=== PATIENT | male | born 1935 | race Caucasian/White ===

== ENCOUNTER 2016-08-14 08:09 | Outpatient (CLI) | payer MEDICARE ==
[2016-08-14] VITALS (7 sets, daily range): BP systolic 110–134; BP diastolic 44–78; PULSE 52–62; TEMP 98.2
[~2016-08-14] VITALS: Ht 167.6 cm; Wt 70.6 kg
[~2016-08-14 08:09] MED LIST: ASPIRIN E.C. 8181 MG PO; COZAAR 50MG50 MG/TAB PO; CRESTOR40 MG PO; LOPRESSOR 225 MG/TAB PO; NO HOME MEDICATIONS; PLAVIX 75MG TAB75 MG PO; PRINIVIL2.5 MG PO; SYNTHROID0.05 MG/TA PO
[2016-08-15] MEDS ORDERED: MULTIPLE VITAMI1 CAP PO (14:48)
[2016-08-15] MEDS ORDERED: TYLENOL 500MG500 MG PO (21:04)
[2016-08-15] MEDS ORDERED: ROXICODONE 55 MG/TAB PO (21:04)
== END 2016-08-14 11:30 | disposition home or self-care (01) ==
LOC: COL.RAD 08:09
DX: M50.30 Other cervical disc degeneration, unspecified cervical region (principal); M47.892 Other spondylosis, cervical region; M48.02 Spinal stenosis, cervical region; I65.23 Occlusion and stenosis of bilateral carotid arteries
CPT/HCPCS: Q9967

== ENCOUNTER 2016-08-15 13:05 | Day surgery (SDC) | payer MEDICARE ==
[~2016-08-15] VITALS: Ht 167.6 cm; Wt 71.0 kg
[2016-08-15 14:39] VITALS: BP 108/81; PULSE 69; TEMP 97.8
[2016-08-15] MEDS ORDERED: MULTIPLE VITAMI1 CAP PO (14:48)
[2016-08-15 20:30] VITALS: BP 114/57; PULSE 71; TEMP 98.2
[2016-08-15 20:45] VITALS: BP 104/46; PULSE 54
[2016-08-15 21:00] VITALS: BP 103/81; PULSE 54; TEMP 98.2
[2016-08-15] MEDS ORDERED: TYLENOL 500MG500 MG PO (21:04)
[2016-08-15] MEDS ORDERED: ROXICODONE 55 MG/TAB PO (21:04)
[2016-08-15 21:15] VITALS: BP 118/67; PULSE 54
== END 2016-08-15 22:45 | disposition home or self-care (01) ==
LOC: SDCO 13:05 → SURG 20:30 → SDCO 22:45
DX: K40.91 Unilateral inguinal hernia, without obstruction or gangrene, recurrent (principal); I10 Essential (primary) hypertension; E03.9 Hypothyroidism, unspecified; Z95.5 Presence of coronary angioplasty implant and graft; I25.811 Atherosclerosis of native coronary artery of transplanted heart without angina pectoris; M48.02 Spinal stenosis, cervical region; G62.9 Polyneuropathy, unspecified; G72.9 Myopathy, unspecified; M79.1 Myalgia; M25.50 Pain in unspecified joint
CPT/HCPCS: OP; A4315; C1781; J0330; J0690; J1100; J1885; J2175; J2370; J2405; J2704; J2710; J3010; J7120

== ENCOUNTER → 2017-06-08 | Outpatient (CLI) | payer MEDICARE ==
[~2017-06-08] MED LIST changes: +MULTIPLE VITAMI1 CAP PO; +ROXICODONE 55 MG/TAB PO; +TYLENOL 500MG500 MG PO
== END ==
LOC: COL.VAS 09:31
DX: I34.0 Nonrheumatic mitral (valve) insufficiency (principal)

== ENCOUNTER 2017-06-28 08:03 | Day surgery (SDC) | payer MEDICARE ==
[2017-06-28] VITALS (12 sets, daily range): BP systolic 86–111; BP diastolic 43–79; PULSE 43–61; TEMP 98.3
[~2017-06-28] VITALS: Ht 170.2 cm; Wt 70.7 kg
[2017-06-28 08:36] LABS: INR 1.1 (0.8-3.0)
[2017-06-28 08:37] LABS: HEMATOCRIT 38.5 % (42.0-52.0); HEMOGLOBIN 12.9 g/dl (13.5-18.0); MEAN CELL VOLUME 94 fl (80.0-100.0); MEAN CORPUSCULAR HEMOGLOBIN 31 pg (27.0-31.0); MEAN CORPUSCULAR HGB CONC 34 g/dl (33.0-37.0); MEAN PLATELET VOLUME 9.2 fl (7.4-10.4); PLATELET COUNT 167 K/mm3 (130-400); RED BLOOD COUNT 4.11 M/mm3 (4.20-5.60); REDCELL DISTRIBUTION WIDTH-CV 13.4 % (11.5-14.5)
[2017-06-28 08:43] LABS: CALCIUM 9.7 mg/dL (8.4-10.2); CREATININE, serum 1.26 mg/dL (0.66-1.25); POTASSIUM 5.2 mmol/L (3.4-5.0)
[2017-06-28] MEDS ORDERED: ELIQUIS 5MG PO (09:15)
[2017-06-28] MEDS ORDERED: LASIX 40MG TABL40 MG PO (09:16)
[2017-06-28] MEDS ORDERED: NEURONTIN300 MG/CAP PO (09:16)
[2017-06-28] MEDS ORDERED: B-12 100 MCG PO (09:17)
[2017-06-28] MEDS ORDERED: VITAMIN D 400400 IU PO (09:17)
[2017-06-28] MEDS ORDERED: MULTAQ400 MG PO (11:07)
== END 2017-06-28 16:16 | disposition home or self-care (01) ==
LOC: COL.CAR 08:03
PROVIDERS: Internal Medicine Cardiovascular Disease
DX: I25.10 Atherosclerotic heart disease of native coronary artery without angina pectoris (principal); I08.3 Combined rheumatic disorders of mitral, aortic and tricuspid valves; I27.20 Pulmonary hypertension, unspecified; I25.2 Old myocardial infarction; N52.9 Male erectile dysfunction, unspecified; I48.0 Paroxysmal atrial fibrillation; M19.90 Unspecified osteoarthritis, unspecified site; F17.220 Nicotine dependence, chewing tobacco, uncomplicated; E78.2 Mixed hyperlipidemia; Z95.5 Presence of coronary angioplasty implant and graft; Z79.01 Long term (current) use of anticoagulants; Z79.82 Long term (current) use of aspirin; Z82.3 Family history of stroke
CPT/HCPCS: C1760; C1894; J2250; J3010; Q9967

== ENCOUNTER 2017-11-05 13:27 | Outpatient (RCR) | payer MEDICARE ==
[~2017-11-05 13:27] MED LIST changes: +B-12 100 MCG PO; +ELIQUIS 5MG PO; +LASIX 40MG TABL40 MG PO; +MULTAQ400 MG PO; +NEURONTIN300 MG/CAP PO; +VITAMIN D 400400 IU PO
== END 2017-12-05 06:09 | disposition home or self-care (01) ==
LOC: COL.CR 13:27
DX: Z48.812 Encounter for surgical aftercare following surgery on the circulatory system (principal); I09.1 Rheumatic diseases of endocardium, valve unspecified; I05.8 Other rheumatic mitral valve diseases; I48.2 Chronic atrial fibrillation; I50.9 Heart failure, unspecified; Z95.5 Presence of coronary angioplasty implant and graft; I25.2 Old myocardial infarction; E78.5 Hyperlipidemia, unspecified

== ENCOUNTER 2018-04-12 09:38 | Inpatient (IN) | payer MEDICARE ==
[~2018-04-12] VITALS: Ht 167.6 cm; Wt 64.9 kg
[2018-04-24 09:46] VITALS: BP 115/46; PULSE 54; TEMP 98
--- NOTE | 2018-04-24 10:00 | NUR ---
Pt arrived to floor at this time. [facility]
[2018-04-24 10:07] LABS: BASO % 0.7 % (0.0-2.0); EOS # 0.1 (0.0-0.7); EOS % 1.8 % (0-4.0); GRAN # 2.6 (1.4-6.5); GRAN % 59.1 % (42.2-75.2); LYMPH # 1.1 (1.2-3.4); LYMPH % 25.2 % (20.0-51.0); MEAN CELL VOLUME 98 fl (80.0-100.0); MEAN CORPUSCULAR HGB CONC 32 g/dl (33.0-37.0); MEAN PLATELET VOLUME 9.1 fl (7.4-10.4); MONO # 0.6 (0.1-0.6); PLATELET COUNT 156 K/mm3 (130-400); RED BLOOD COUNT 3.17 M/mm3 (4.20-5.60); REDCELL DISTRIBUTION WIDTH-CV 15.8 % (11.5-14.5)
[2018-04-24 10:17] LABS: INR 4.6 (0.8-3.0)
[2018-04-24 10:21] LABS: ALBUMIN 3.7 gm/dL (3.5-5.0); BILIRUBIN,TOTAL 0.9 mg/dL (0.0-1.0); CALCIUM 9.2 mg/dL (8.4-10.2); CREATININE, serum 1.77 mg/dL (0.66-1.25); MAGNESIUM 2.1 mg/dL (1.6-2.3); POTASSIUM 4.3 mmol/L (3.4-5.0); TOTAL PROTEIN 6.8 gm/dL (6.4-8.2)
[2018-04-24 10:36] LABS: PROTHROMBIN TIME 52.7 SECONDS (9.7-12.8)
[2018-04-24 10:40] LABS: HEMATOCRIT 31.1 % (42.0-52.0); HEMOGLOBIN 9.8 g/dl (13.5-18.0); MEAN CORPUSCULAR HEMOGLOBIN 31 pg (27.0-31.0)
[2018-04-24] MEDS ORDERED: COUMADIN 5MG5 MG/TAB PO (11:53)
[2018-04-24 11:56] VITALS: BP 111/53; PULSE 49; TEMP 97.4
--- NOTE | 2018-04-24 12:20 | NUR ---
First visit from the top carrier. Sample Grader prayed with patient and . No other needs right now.
--- NOTE | 2018-04-24 12:33 | NUR ---
Assessment completed. Called Cale's team regarding bradycardia, hypotension, and INR. They are aware and will address. INT to LF. Oriented to room. Denies needs, will continue to monitor.
[2018-04-24 16:00] VITALS: BP 92/49; PULSE 49; TEMP 98.5
--- NOTE | 2018-04-24 18:05 | NUR ---
Pt has done well today. Likes to walk around floor visiting with people, HR goes from upper 30's to 50's depending on activity. Ordered supper for himself, denies pain or other needs. Will give bedside shift report to nightshift brannon who will resume care.
[2018-04-24 19:29] VITALS: BP 98/69; PULSE 114; TEMP 97.8
--- NOTE | 2018-04-24 21:00 | NUR ---
Completed assessment and medication administration; PT tolerated all cares well; No acute reports of pain or discomfort; PT A&Ox4, ABD soft and round, BS active x4, normal and scaley skin; BLE have edema +1, irregular HR; PT denied further needs at time of exit; PT assisted to comfortable position in bed with call light in reach; Will continue to monitor. CDA
[2018-04-24 23:33] VITALS: BP 116/98; PULSE 116; TEMP 97.6
[2018-04-25] VITALS (7 sets, daily range): BP systolic 79–119; BP diastolic 45–58; PULSE 45–96; TEMP 97.4–98.1
--- NOTE | 2018-04-25 02:00 | NUR ---
Reported asymptomatic drop bradycardia with Sotalol PT above; PT recorded in the mid 30 HR for short time and back to the 60 range; Dr. Grant acknowledge notification with no changes at this time. CDA
[2018-04-25 06:32] LABS: CALCIUM 8.7 mg/dL (8.4-10.2); CREATININE, serum 1.82 mg/dL (0.66-1.25); MAGNESIUM 1.9 mg/dL (1.6-2.3); POTASSIUM 4.6 mmol/L (3.4-5.0)
[2018-04-25 06:33] LABS: BASO % 0.9 % (0.0-2.0); EOS # 0.1 (0.0-0.7); EOS % 2.1 % (0-4.0); GRAN % 46.7 % (42.2-75.2); LYMPH # 1.7 (1.2-3.4); LYMPH % 38.9 % (20.0-51.0); MEAN CELL VOLUME 98 fl (80.0-100.0); MEAN CORPUSCULAR HGB CONC 32 g/dl (33.0-37.0); MEAN PLATELET VOLUME 9.6 fl (7.4-10.4); MONO # 0.5 (0.1-0.6); MONO % 11.2 % (1.7-9.3); PLATELET COUNT 164 K/mm3 (130-400); RED BLOOD COUNT 3.06 M/mm3 (4.20-5.60); REDCELL DISTRIBUTION WIDTH-CV 15.7 % (11.5-14.5)
[2018-04-25 06:42] LABS: HEMOGLOBIN 9.5 g/dl (13.5-18.0); MEAN CORPUSCULAR HEMOGLOBIN 31 pg (27.0-31.0)
--- NOTE | 2018-04-25 06:52 | NUR ---
Report given to GEO Ewing. PT rested well during night with no acute complaints of pain or changes. CDA
--- NOTE | 2018-04-25 07:50 | NUR ---
Assessment complete.patient awake,a/ox3.denies pain or discomfort at this time.breathing even and unlabored.LSCTA.Edema 2+ noted to RLE and 1+ to LLE.patient is on lasix.QTc 416 this am.pt is Sinus Jose Luis on telemetry.no other needs voiced.call light in reach
[2018-04-25 08:47] LABS: INR 3.5 (0.8-3.0)
--- NOTE | 2018-04-25 14:59 | NUR ---
BRUCE met with the patient and patient's , Vania, to discuss discharge plan. The patient lives in [place] with his . He reports independence with ADLs and has canes. The patient's PCP is Dr. Jung Santoro and he receives his medications at [facility]. He reports no difficulties obtaining his meds. The patient does not have advanced directives in EMR, but he states that he does have them completed and that they are at home. The patient plans to return home with his upon dischrage. No additional needs at this time.
--- NOTE | 2018-04-25 18:08 | NUR ---
PT HAS HAD AN UNEVNFUL DAY.PT HAS GUEST VISITING AT THIS TIME.DENIES ANY NEEDS.VSS.AWARE OF CARDIOVRSION TOMORROW MORNING.WILL CONTINUE TO MONITOR.CALL LIGHT IN REACH
--- NOTE | 2018-04-25 22:32 | NUR ---
Completed assessment and medication administration; PT tolerated all cares and medications well; PT resting in bed with spouse in room resting on window seat; PT continues Sotalol therapy; Reeducated on NPO after midnight with verbal understanding for pending cardioversion and possible pacemaker placement; PT A&Ox4, BS active x4, LCTAB; No further complaints or concerns at time of exit; PT able to return to a comfort position in bed with call light in reach; Will continue to monitor. CDA
[2018-04-26] VITALS (9 sets, daily range): BP systolic 92–131; BP diastolic 39–79; PULSE 44–127; TEMP 97.6–98.4
--- NOTE | 2018-04-26 01:41 | NUR ---
PT resting well in bed at time of rounds; Intermittent bradycardia with periodic drops in HR to low 30s; Reported to Dr. Yao with N/O to hold AM dose of Sotalol; No acute symptom changes at time of physical assessment; TELE ICU nurse made multiple notifications of HR drop and was notified of physician awareness; notification calls will be made for HR at or below 30; PT able to return to a comfortable position at time of exit with call light within reach; Will continue to monitor. CDA
[2018-04-26 06:21] LABS: BASO # 0.1 (0.0-0.2); BASO % 1.1 % (0.0-2.0); EOS # 0.1 (0.0-0.7); EOS % 1.9 % (0-4.0); GRAN % 55.8 % (42.2-75.2); INR 2.2 (0.8-3.0); LYMPH # 1.6 (1.2-3.4); LYMPH % 29.1 % (20.0-51.0); MEAN CELL VOLUME 98 fl (80.0-100.0); MEAN CORPUSCULAR HGB CONC 32 g/dl (33.0-37.0); MEAN PLATELET VOLUME 9.6 fl (7.4-10.4); MONO # 0.6 (0.1-0.6); MONO % 11.9 % (1.7-9.3); PLATELET COUNT 168 K/mm3 (130-400); PROTHROMBIN TIME 25.2 SECONDS (9.7-12.8); RED BLOOD COUNT 3.18 M/mm3 (4.20-5.60); REDCELL DISTRIBUTION WIDTH-CV 15.6 % (11.5-14.5)
[2018-04-26 06:22] LABS: HEMATOCRIT 31.1 % (42.0-52.0); HEMOGLOBIN 9.8 g/dl (13.5-18.0); MEAN CORPUSCULAR HEMOGLOBIN 31 pg (27.0-31.0)
[2018-04-26 06:24] LABS: CALCIUM 9.1 mg/dL (8.4-10.2); CREATININE, serum 1.81 mg/dL (0.66-1.25); POTASSIUM 4.7 mmol/L (3.4-5.0)
--- NOTE | 2018-04-26 06:52 | NUR ---
Report given to GEO Dominguez; No significant changes not previously noted. CDA
--- NOTE | 2018-04-26 07:47 | NUR ---
Assessment complete. Pt is AXO X3, denies having any pain at this time. Breathing is even and unlabored on room air. Tele on. LF INT flushes easily, remains free of complications, and is CDI. Pt's is at the bedside; all questions answered. Pt is resting quietly in the bed at this time and he denies further needs. Call light within reach, will continue to monitor.
--- NOTE | 2018-04-26 08:00 | NUR ---
Pt left the floor at this time for procedure.
--- NOTE | 2018-04-26 08:59 | NUR ---
ALL SEDATION MEDICATIONS WILL BE GIVEN DURING PROCEDURE WITH VERBAL ORDER FROM MD CHANCE. CARDIOVERSION PERFORMED FIRST SUCCESSFULLY. PATIENT NOW ON TABLE BEING PREPPED FOR PACEMAKER INSERTTION. SEE MERGE FOR MEDICATION ADMIN TIMES. SEE MERGE FOR RASS AND MODERATE SEDATION ASSESSMENTS DURING AND POST PROCEDURE.
--- NOTE | 2018-04-26 20:31 | NUR ---
Pt has been resting on and off throughout the day. He has remained free of pain. L chest pacemaker site has remained CDI. Pt is resting quietly in the bed at this time and he denies further needs. Call light within reach. Report given to GEO Rosario.
--- NOTE | 2018-04-26 20:49 | NUR ---
PT'S O2 WAS 80% ON RA, PLACED OXYGEN AT 3L/NC AND O2 WENT UP TO 95%. PT WAS LAYING BENT AND LOW IN BED. PT GOT UP AND TOOK OFF O2 AND HE FEELS FINE WITHOUT IT. PT IS IN BED WITH HOB AT 30 DEGREE ANGLE. PT DENIES PAIN WHILE STILL BUT HAS PAIN WHEN HE MOVES IN HIS LEFT ARM. PT WAS GIVEN TYLENOL EARLIER. NO FURTHER NEEDS CALL LIGHT WITHIN REACH.
--- NOTE | 2018-04-27 03:35 | NUR ---
PT HAS BEEN UP SEVERAL TIMES SO FAR DURING THE NIGHT. PT ADVISES THAT HE CAN'T GET COMFORTABLE AND LEFT SHOULDER HURTS. OFFERED PAIN MEDICATION AND PT STATES THAT HE HAS NO PAIN. PT HAS BEEN COLD, PUT TWO WARM BLANKETS ON PT AND COVERED WITH OTHER BLANKETS. PT ADVISED THAT HE WAS COMFORTABLE. PT RESTING/SLEEPING AT THIS TIME. NO FURTHER NEEDS. CALL LIGHT WITHIN REACH.
[2018-04-27 03:38] VITALS: BP 104/58; PULSE 62; TEMP 98.6
--- NOTE | 2018-04-27 04:18 | NUR ---
PT'S O2 WENT DOWN TO 86% ON ROOM AIR. PLACED 2L/NC BACK ON PT AND ADVISED HIM TO LEAVE IT ON WHILE HE SLEEPS. PT ADVISES THAT HE DOES NOT HAVE SLEEP APNEA. ADVISED HIM HE MAY WANT TO CHECK INTO IT, BECAUSE HIS O2 DROPS DOWN WHEN HE IS SLEEPING. CALL LIGHT WITHIN REACH.
--- NOTE | 2018-04-27 05:53 | NUR ---
PT GOT UP TO USE THE BATHROOM AND THEN ASKED FOR SOME PAIN MEDICATION. ASSISTED BACK TO BED AND PAIN MEDICATION TYLENOL GIVEN. PT TRYING TO GO BACK TO SLEEP. CALL LIGHT WITHIN REACH.
[2018-04-27 06:56] VITALS: BP 99/46; PULSE 65; TEMP 98.2
[2018-04-27 06:59] LABS: BASO % 0.9 % (0.0-2.0); EOS # 0.1 (0.0-0.7); EOS % 1.3 % (0-4.0); GRAN # 2.6 (1.4-6.5); GRAN % 56.6 % (42.2-75.2); HEMATOCRIT 27.2 % (42.0-52.0); HEMOGLOBIN 8.8 g/dl (13.5-18.0); LYMPH # 1.1 (1.2-3.4); LYMPH % 24.8 % (20.0-51.0); MEAN CELL VOLUME 97 fl (80.0-100.0); MEAN CORPUSCULAR HEMOGLOBIN 31 pg (27.0-31.0); MEAN CORPUSCULAR HGB CONC 32 g/dl (33.0-37.0); MEAN PLATELET VOLUME 9.3 fl (7.4-10.4); MONO # 0.7 (0.1-0.6); PLATELET COUNT 144 K/mm3 (130-400); RED BLOOD COUNT 2.82 M/mm3 (4.20-5.60); REDCELL DISTRIBUTION WIDTH-CV 15.4 % (11.5-14.5)
[2018-04-27 07:03] LABS: PROTHROMBIN TIME 23.3 SECONDS (9.7-12.8)
[2018-04-27 07:11] LABS: CALCIUM 8.3 mg/dL (8.4-10.2); CREATININE, serum 1.5 mg/dL (0.66-1.25); MAGNESIUM 1.8 mg/dL (1.6-2.3); POTASSIUM 4.3 mmol/L (3.4-5.0)
--- NOTE | 2018-04-27 09:10 | NUR ---
Assessment complete. Pt is AXO X3, denies having any pain at this time. Breathing is even and unlabored. Tele on. LF INT flushes easily, remains free of complications, and is CDI. L chest pacemaker site is CDI and is free of complications. Pt has family members at the bedside; all questions answered. Pt is sitting up in the chair at this time and he denies further needs. Call light within reach, will continue to monitor.
[2018-04-27] MEDS ORDERED: BETAPACE 80MG80 MG PO (10:41)
[2018-04-27] MEDS ORDERED: NORCO 325 MG-51 TAB PO (10:42)
--- NOTE | 2018-04-27 11:58 | NUR ---
Pt discharged at this time. LF INT discontinued with the catheter tip intact. Education provided and all questions were answered. Pt and his both verblaize understanding. Pt escourted out via WC with tech. Mary Ellen
== END 2018-04-27 12:00 | disposition home or self-care (01) | DRG 243 ==
LOC: MEDICAL 16:20
PROVIDERS: Nurse Practitioner; ADMIT Internal Medicine Cardiovascular Disease
PROC: 0JH606Z Insertion of Pacemaker, Dual Chamber into Chest Subcutaneous Tissue and Fascia, Open Approach (ICD-10-PCS; principal; 2018-04-26)
PROC: 02H63JZ Insertion of Pacemaker Lead into Right Atrium, Percutaneous Approach (ICD-10-PCS; 2018-04-26)
PROC: 02HK3JZ Insertion of Pacemaker Lead into Right Ventricle, Percutaneous Approach (ICD-10-PCS; 2018-04-26)
PROC: 5A2204Z Restoration of Cardiac Rhythm, Single (ICD-10-PCS; 2018-04-26)
DX: I48.0 Paroxysmal atrial fibrillation (principal); I50.32 Chronic diastolic (congestive) heart failure; I34.0 Nonrheumatic mitral (valve) insufficiency; I49.5 Sick sinus syndrome; I11.0 Hypertensive heart disease with heart failure; E78.2 Mixed hyperlipidemia; I25.10 Atherosclerotic heart disease of native coronary artery without angina pectoris; Z95.5 Presence of coronary angioplasty implant and graft; Z87.891 Personal history of nicotine dependence
CPT/HCPCS: C1769; C1785; C1894; C1898; J2250; J3010; J3370; J7030; J7050

== ENCOUNTER 2018-11-24 02:27 | Observation (INO) | payer MEDICARE ==
[2018-11-24] VITALS (10 sets, daily range): BP systolic 78–120; BP diastolic 40–80; PULSE 60–88; TEMP 98.2–100.7
[~2018-11-24] VITALS: Ht 167.6 cm; Wt 68.4 kg
[~2018-11-24 02:27] MED LIST changes: +BETAPACE 80MG80 MG PO; +COUMADIN 5MG5 MG/TAB PO; +NORCO 325 MG-51 TAB PO
[2018-11-24 03:19] LABS: BASO % 0.5 % (0.0-2.0); EOS % 0.3 % (0-4.0); GRAN # 4.7 (1.4-6.5); GRAN % 79.2 % (42.2-75.2); HEMATOCRIT 28.7 % (42.0-52.0); HEMOGLOBIN 9.7 g/dl (13.5-18.0); LYMPH # 0.5 (1.2-3.4); LYMPH % 7.8 % (20.0-51.0); MEAN CELL VOLUME 95 fl (80.0-100.0); MEAN CORPUSCULAR HEMOGLOBIN 32 pg (27.0-31.0); MEAN CORPUSCULAR HGB CONC 34 g/dl (33.0-37.0); MEAN PLATELET VOLUME 9.3 fl (7.4-10.4); MONO # 0.7 (0.1-0.6); MONO % 11.7 % (1.7-9.3); PLATELET COUNT 113 K/mm3 (130-400); RED BLOOD COUNT 3.02 M/mm3 (4.20-5.60)
[2018-11-24 03:23] LABS: INR 1.9 (0.8-3.0); PROTHROMBIN TIME 22.3 SECONDS (9.7-12.8)
[2018-11-24 03:32] LABS: ALBUMIN 3.9 gm/dL (3.5-5.0); BILIRUBIN,TOTAL 1.9 mg/dL (0.0-1.0); C-REACTIVE PROTEIN 6.6 mg/dL (0.0-0.9); CALCIUM 8.8 mg/dL (8.4-10.2); CREATININE, serum 1.37 (0.66-1.25); POTASSIUM 4.5 mmol/L (3.4-5.0); TOTAL PROTEIN 7.4 gm/dL (6.4-8.2)
[2018-11-24 03:41] LABS: TROPONIN-I 0.062 ng/mL (0.000-0.035)
[2018-11-24] MEDS ORDERED: CRESTOR40 MG PO (05:25)
[2018-11-24] MEDS ORDERED: IMDUR 30MG30 MG/TAB PO (05:25)
--- NOTE | 2018-11-24 05:39 | NUR ---
PT ARRIVED TO UNIT FROM ED. PATIENT FELL AT HOME BETWEEN BED AND WALL AND COULD NOT GET UP. STATES HE HAS HAD PROGRESSIVE LOWER EXTREMITY WEAKNESS FOR THE PAST FEW DAYS. TOLD EMS THAT HE WAS HAVING CHEST PAIN BUT PATIENT DENIES ANY CHEST PAIN OR SOB NOW. PATIENT ALERT AND ORIENTED WITH VSS.DENIES PAIN. IV TO RIGHT AC. IS A X1 ASSIST TO BEDSIDE COMMODE. ALL QUESTIONS ASKED AND ANSWERED. CALL LIGHT WITHIN REACH, WILL CONTINUE TO MONITOR
--- NOTE | 2018-11-24 07:00 | NUR ---
Report recieved from Jaosn Reynolds. Pt in bed resting on side with eyes closed. Will continue to monitor.
[2018-11-24 07:33] LABS: COLLECTION METHOD CLEAN CATCH
[2018-11-24 07:43] LABS: CHOLESTEROL RISK RATIO 2.9; MAGNESIUM 1.8 mg/dL (1.6-2.3)
[2018-11-24 07:44] LABS: PH 6 (5-8); SQUAMOUS EPITHELIAL 0-2 /hpf; URINE APPEARANCE Clear; URINE BACTERIA Rare /hpf; URINE BILIRUBIN Negative (NEGATIVE); URINE BLOOD 3+ (NEGATIVE); URINE COLOR Yellow; URINE GLUCOSE Negative (NEGATIVE); URINE KETONE Trace (NEGATIVE); URINE LEUKOCYTE ESTERASE Negative (NEGATIVE); URINE NITRATE Negative (NEGATIVE); URINE PROTEIN(semi-quant) 1+ (NEGATIVE)
[2018-11-24 08:01] LABS: TROPONIN-I 6 HR POST INITIAL 0.064 ng/mL (0.000-0.034)
[2018-11-24 08:14] LABS: THYROID STIMULATING HORMONE 1.17 uIU/mL (0.465-4.680)
--- NOTE | 2018-11-24 09:00 | NUR ---
Assessment charted. Pt in bed resting, discussed and plan of care, waiting on Dr. Almaguer to come visit. at bedside discussing plan of care. INT to R AC. Denies pain. Feeling tired from being up all night in ER. HR irregular. Will continue to monitor.
--- NOTE | 2018-11-24 11:31 | NUR ---
Patient lives at home with his (Alexis Kaiser [phone]) in [place], [place] and plans to return home upon recovery. Patient and have two supportive children (daughter who is a [facility] Nurse and a son who is an Comfort Filler) who support needs as much as possible. 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. Patient's primary care physician is Jung Santoro and also receives care as needed from Hermilo Madsen. Patient's pharmacy is [facility] and he does have advance directives for healthcare completed but they are not on file in his medical chart at this time. No further needs and social service assistant will follow as needed.
--- NOTE | 2018-11-24 18:17 | NUR ---
Pt resting in bed with many visitors at bedside. Up to bathroom several times over shift and pt states it is "getting easier to get up". Resting in bed, discussed plan of care and NPO at midnight for stress test tomorrow, pt agreeable to plan and family aware. Denies needs, will give bedside shift report to nightshift who will resume care.
--- NOTE | 2018-11-24 20:25 | NUR ---
Shift assessment complete. Pt resting in bed, awake, a&o, cooperative c cares. Pt denies pain or any other c/o at this time. INT patent. Tele in place. Pt denies needs. Call light in reach, family at bedside. Will continue to monitor.
[2018-11-25] VITALS (8 sets, daily range): BP systolic 96–106; BP diastolic 42–61; PULSE 64–66; TEMP 98.4–99
[2018-11-25 06:31] LABS: BASO % 0.4 % (0.0-2.0); EOS # 0.2 (0.0-0.7); EOS % 3.1 % (0-4.0); GRAN # 3.9 (1.4-6.5); GRAN % 72.4 % (42.2-75.2); LYMPH # 0.8 (1.2-3.4); LYMPH % 13.8 % (20.0-51.0); MEAN CELL VOLUME 95 fl (80.0-100.0); MEAN CORPUSCULAR HGB CONC 33 g/dl (33.0-37.0); MEAN PLATELET VOLUME 9.9 fl (7.4-10.4); MONO # 0.5 (0.1-0.6); MONO % 9.9 % (1.7-9.3); PLATELET COUNT 113 K/mm3 (130-400); RED BLOOD COUNT 2.68 M/mm3 (4.20-5.60); REDCELL DISTRIBUTION WIDTH-CV 14.3 % (11.5-14.5)
[2018-11-25 06:47] LABS: HEMATOCRIT 25.5 % (42.0-52.0); HEMOGLOBIN 8.5 g/dl (13.5-18.0); MEAN CORPUSCULAR HEMOGLOBIN 32 pg (27.0-31.0)
[2018-11-25 06:50] LABS: ALBUMIN 3.3 gm/dL (3.5-5.0); BILIRUBIN,TOTAL 1.5 mg/dL (0.0-1.0); CALCIUM 8.5 mg/dL (8.4-10.2); CREATININE, serum 1.49 (0.66-1.25); MAGNESIUM 1.9 mg/dL (1.6-2.3); PHOSPHOROUS 2.5 mg/dL (2.5-4.5); POTASSIUM 4.4 mmol/L (3.4-5.0); TOTAL PROTEIN 6.4 gm/dL (6.4-8.2)
[2018-11-25 07:01] LABS: TROPONIN-I 0.02 ng/mL (0.000-0.035)
--- NOTE | 2018-11-25 08:00 | NUR ---
PATIENT IS A&O. VSS. DENIES ANY SOA, CHEST PAIN OR ANY PAIN. PATIENT REPORTS HE FEELS WELL THIS AM. PRESS OPERATOR CARBON BLOCKS REPORTED PATIENT WAS INCONTINENT OF BM X2 LAST NOC. PATIENT REFUSED AM STOOL SOFTERN. BETAPACE HELD FROM SCHEDULED AJAY SCAN. PATIENT NPO. CONSENT ON CHART. OTHER AM MEDS GIVEN. HEAD TO TOE ASSESSMENT COMPLETE. NOTED IRREGULAR HEART WITH MURUR. TELE INPLACE WITH HR IN THE 60'S PACED. NO C/O N/C. RIGHT AC IV TO INT. AT BEDSIDE. NO OTHER NEEDS. CALL LIGHT IN REACH.
--- NOTE | 2018-11-25 10:16 | NUR ---
Initial visit; Patient thanked Clinical Education Manager for looking in on him and offering prayer and God's blessings for both him and his .
--- NOTE | 2018-11-25 17:15 | NUR ---
PATIENT DISCHARGING HOME VIA WHEELCHAIR TO PERSONAL VEHICLE WITH FAMILY. GAVE DISCHARGE INSTRUCTIONS AND F/U CARDIOLOGY APT. PATIENT WILL NEED TO CALL AND MAKE PCP APT DUE TO OFFICE CLOSED. ANSWERED ALL QUESTIONS/CONCERNS. DC'D IV SITE AND COVERED WITH BANDAID AND COBAN. TELE OFF. PATIENT DISCHARGED.
== END 2018-11-25 17:15 | disposition home or self-care (01) ==
LOC: COL.ER 02:27 → MEDICAL 04:11
PROVIDERS: Emergency Medicine; Family Medicine; Nurse Practitioner Family; ADMIT Student in an Organized Health Care Education/Training Program
DX: R53.1 Weakness (principal); I48.0 Paroxysmal atrial fibrillation; I49.5 Sick sinus syndrome; I34.0 Nonrheumatic mitral (valve) insufficiency; I27.20 Pulmonary hypertension, unspecified; I25.10 Atherosclerotic heart disease of native coronary artery without angina pectoris; N18.9 Chronic kidney disease, unspecified; I12.9 Hypertensive chronic kidney disease with stage 1 through stage 4 chronic kidney disease, or unspecified chronic kidney disease; E03.9 Hypothyroidism, unspecified; D64.9 Anemia, unspecified; D69.6 Thrombocytopenia, unspecified; Z95.0 Presence of cardiac pacemaker; Z79.01 Long term (current) use of anticoagulants; Z79.899 Other long term (current) drug therapy; Z82.3 Family history of stroke; Z79.891 Long term (current) use of opiate analgesic; Z88.0 Allergy status to penicillin
CPT/HCPCS: 99222-AI; 99239; A9500; J2785; J7030

== ENCOUNTER 2019-01-17 09:02 | Day surgery (SDC) | payer MEDICARE ==
[~2019-01-17] VITALS: Ht 167.6 cm; Wt 72.0 kg
[~2019-01-17 09:02] MED LIST changes: +IMDUR 30MG30 MG/TAB PO
[2019-01-17 09:50] VITALS: BP 121/79; PULSE 96; TEMP 97.9
[2019-01-17] MEDS ORDERED: COUMADIN 22.5 MG/TAB PO (10:03)
[2019-01-17 11:45] VITALS: BP 100/63; PULSE 79; TEMP 97.5
--- NOTE | 2019-01-17 11:45 | NUR ---
Pt to GI bay 8 via cart from [facility]. Pt drowsy, but awake. Denies pain or nausea. in room. Pt ambulates to recliner with stand by assistance. Warm blanket provided. Muffin, pudding, juice and water provided per pt request. Will continue to monitor. Call light within reach.
[2019-01-17 12:00] VITALS: BP 104/62; PULSE 76
--- NOTE | 2019-01-17 12:00 | NUR ---
Pt tolerating food and fluids without difficulties. Will continue to monitor. Call light within reach.
[2019-01-17 12:15] VITALS: BP 105/62; PULSE 77
--- NOTE | 2019-01-17 12:15 | NUR ---
Pt continues to rest. Denies needs. Call light within reach.
--- NOTE | 2019-01-17 12:30 | NUR ---
Discharge instructions reviewed. Pt and voice understanding. IV site discontinued with all parts intact. Pt up to dress. Call light within reach.
--- NOTE | 2019-01-17 12:55 | NUR ---
Pt escorted to private car via wheel chair. Pt accompanied home by his .
== END 2019-01-17 12:55 | disposition home or self-care (01) ==
LOC: SDCO 09:02
DX: D12.5 Benign neoplasm of sigmoid colon (principal); K57.30 Diverticulosis of large intestine without perforation or abscess without bleeding; K92.1 Melena; D50.0 Iron deficiency anemia secondary to blood loss (chronic); K25.7 Chronic gastric ulcer without hemorrhage or perforation; K29.80 Duodenitis without bleeding; K64.1 Second degree hemorrhoids; I25.10 Atherosclerotic heart disease of native coronary artery without angina pectoris; I10 Essential (primary) hypertension; M19.90 Unspecified osteoarthritis, unspecified site; E03.9 Hypothyroidism, unspecified; Z79.82 Long term (current) use of aspirin; Z87.891 Personal history of nicotine dependence
CPT/HCPCS: J2704; J7120